=== PATIENT | female | born 1980 | race Two or more races ===

== ENCOUNTER 2024-01-31 11:17 | Emergency (ER) | payer OTHER ==
[~2024-01-31] VITALS: Ht 152.4 cm; Wt 81.6 kg
[2024-01-31] MEDS ORDERED: ALBUTEROL2.5 MG/3 M IH (11:48)
[2024-01-31] MEDS ORDERED: SYMBICORT 80/10.2 GM IH (11:48)
[2024-01-31] MEDS ORDERED: SINGULAIR10 MG PO (11:49)
[2024-01-31] MEDS ORDERED: MAGNESIUM SULFATE IN WATER 50 ML IV ONE (12:15)
[2024-01-31] MEDS ORDERED: GUAIFENESIN/DEXTROMETHORPHAN 100 MG/5 ML ML PO ONE (12:15)
[2024-01-31] MEDS ORDERED: METHYLPREDNISOLONE SOD SUCC 125 MG VIAL IV ONE (12:15)
[2024-01-31] MEDS ORDERED: IPRATROPIUM/ALBUTEROL SULFATE 3 ML AMPUL.NEB IH SCH (12:15)
[2024-01-31 12:52] LABS: HEMATOCRIT 38.2 % (36.0-45.00); MEAN CELL VOLUME 83.3 fL (80.00-100.00); MEAN CORPUSCULAR HEMOGLOBIN 28.2 pg (27.00-32.0); MEAN CORPUSCULAR HGB CONC 33.9 g/dl (32.0-36.0); PLATELET COUNT 354 K/uL (150-450); RED BLOOD COUNT 4.59 M/uL (4.00-6.00); RED CELL DISTRIBUTION WIDTH 15.6 % (11.5-14.5)
[2024-01-31 13:16] LABS: ALBUMIN 3.7 gm/dL (3.4-5.0); BILIRUBIN TOTAL 0.8 mg/dL (0.3-1.2); CALCIUM 9.3 mg/dL (8.5-10.1); CREATININE SERUM 0.86 mg/dL (0.55-1.02); GFR 72.02; GLOBULINA 4.4 G/DL (2.4-3.5); POTASSIUM 3.68 mEq/L (3.5-5.1); TOTAL PROTEIN 8.1 gm/dL (6.4-8.2)
[2024-01-31] MEDS ORDERED: MEDROLPACK PO (13:59)
[2024-01-31] MEDS ORDERED: IPRAT-ALBUT 0.5-3 ML IH (13:59)
[2024-01-31] MEDS ORDERED: TUSNEL LIQUID178 ML PO (13:59)
[2024-01-31 14:00] LABS: ABG PH 7.463 (7.35-7.45); ABG PO2 151.3 mmHg (80-100); SaO2 99.4 %
[2024-01-31 14:01] LABS: BASE EXCESS 0.1 mmol/l; BICARBONATE 23.1 mmol/l (23-25); Tco2 24.1 mmol/l; allen test SATISFACTORY; o2 21 %; puncture site RADIAL RIGHT
[2024-01-31] MEDS ORDERED: BACTRIM DS TAB1 EACH PO (14:18)
== END 2024-01-31 14:23 | disposition home or self-care (01) ==
LOC: ER 11:17
PROVIDERS: General Practice
DX: J45.901 Unspecified asthma with (acute) exacerbation (principal); Z20.822 Contact with and (suspected) exposure to COVID-19; Z91.041 Radiographic dye allergy status